=== PATIENT | male | born 1970 | race Caucasian/White ===

== ENCOUNTER 2017-12-21 22:46 | Emergency (ER) | payer MEDICAID ==
[~2017-12-21] VITALS: Ht 182.9 cm; Wt 110.6 kg
[2017-12-21] MEDS ORDERED: IBUPROFEN 200 MG TABLET ONE (23:16)
[2017-12-21] MEDS ORDERED: IBUPROFEN 200 MG TABLET PO ONE (23:30)
[2017-12-22 00:32] VITALS: BP 115/74
== END 2017-12-22 00:44 | disposition home or self-care (01) ==
LOC: ED 23:28
DX: S63.522A Sprain of radiocarpal joint of left wrist, initial encounter (principal); F17.200 Nicotine dependence, unspecified, uncomplicated; Z88.0 Allergy status to penicillin; V09.20XA Pedestrian injured in traffic accident involving unspecified motor vehicles, initial encounter; Y93.01 Activity, walking, marching and hiking; Y99.8 Other external cause status; Y92.481 Parking lot as the place of occurrence of the external cause
CPT/HCPCS: 99284

== ENCOUNTER 2018-03-12 06:49 | Emergency (ER) | payer MEDICAID ==
[~2018-03-12] VITALS: Ht 182.9 cm; Wt 114.5 kg
[2018-03-12] MEDS ORDERED: CEFAZOLIN 1,000 MG ONE (07:28)
[2018-03-12] MEDS ORDERED: CEFAZOLIN 1,000 MG IM ONE (07:30)
[2018-03-12] MEDS ORDERED: ONDANSETRON ODT 4 MG PO ONE (07:30)
[2018-03-12] MEDS ORDERED: ONDANSETRON ODT 4 MG ONE (07:32)
[2018-03-12 08:32] VITALS: BP 136/97
== END 2018-03-12 08:42 | disposition home or self-care (01) ==
LOC: ED 08:35
DX: L03.115 Cellulitis of right lower limb (principal); E03.9 Hypothyroidism, unspecified; Z88.0 Allergy status to penicillin
CPT/HCPCS: 93971; 96372; 99284; J0690; Q0162